=== PATIENT | female | born 2000 | race Caucasian/White ===

== ENCOUNTER 2019-06-29 14:09 | Inpatient (IN) ==
[2019-06-29] MEDS ORDERED: PENICILLIN G POTASSIUM 6 MU in DEXTROSE 5% 250 ML IV STA (15:09)
[2019-06-29] MEDS ORDERED: PENICILLIN G POTASSIUM 3 MU in DEXTROSE 5% 100 ML IV PRN (15:09)
[2019-06-29] MEDS ORDERED: OXYTOCIN 30 UNITS/500 ML BAG IV PRN ×3 (15:09→20:41)
--- NOTE | 2019-06-29 15:17 | History & Physical Report ---
Date of Service June 29, 2019 Assessment & Plan (1) Irregular uterine contractions: 18 yo at 39.6 wks with irregular ctxs, spotting since 06/28 Cervix favorable, GBS+, distance from hospital Discussed observation and recheck in 2 hours for cervical change or stay in for augmentation of labor She decided to stay for augmentation with pitocin All questions were answered History of Present Illness Primary Care Provider: NO PCP Patient is a 18 yo at 39.6 wks who has been feeling crampy since since 06/27 when her membranes were stripped in the office She has been having mild bleeding since 06/28 afternoon Cramping/ ctxs got closer and more painful today and she came to L&D No LOF +FM Her has been uncomplicated except GBS+ Denies medical problems/ Smoking/ alcohol/ Drug or medication use Allergies Allergy/AdvReac Type Severity Reaction Status Date / Time No Known Allergies Allergy Unverified 06/29/19 14:28 Home Medications Home Medications Medication Instructions Recorded Confirmed Type vit-iron fum-folic ac 1 tab PO DAILY 06/29/19 06/29/19 History [ Vitamin] Patient History Social History Preferred Language: Mohawk Communication Ability: Effective 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 Beliefs That Will Affect Care: None marital status: Current Living Situation: Spouse Other Information That Helps Us Care for You: No Feels Safe at Home: Yes Safety Concerns: Feels Safe At This Time Smoking Status: Never smoker Do You Dip or Chew Tobacco: No ; Second Hand Exposure: No ; Tobacco Cessation Education Requested by Patient: No Hx Alcohol Use: No Hx Substance Use: No 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
[2019-06-29 15:34] LABS: Hematocrit (blood only) 35.7 % (37-47); Hemoglobin 11.8 g/dL (12.0-16.0); Mean Corpuscular Hemoglobin 28.8 pg (25-34); Mean Corpuscular Volume 87.1 fL (80-100); Mean Platelet Volume 12.8 fL (7.4-10.4); Platelet Count 143 K/uL (130-400); RDW Coefficient of Variation 13.9 % (11.5-14.5); RDW Standard Deviation 44.1 fL (36.4-46.3); White Blood Count 7.99 K/uL (4.8-10.8)
[2019-06-29] MEDS: LACTATED RINGER'S 1,000 ML IV PRN ×2 (15:36→17:28)
[2019-06-29 15:48] LABS: Mean Corpuscular Hgb Conc 33.1 g/dL (32-36)
--- NOTE | 2019-06-29 16:45 | Obstetrical Progress Note ---
Date of Service June 29, 2019 Assessment & Plan Admission and Anticipated Discharge Date Admission Date: June 29, 2019 Subjective Patient is getting painful and desires epidural for pain VE; good 4 cm/ 80%/ -2 Pitocin is at 4 miu/min Unable to trace ctxs well she is moving and rolling in the bed PCN is running Plan to get epidural for pain and continue to monitor Results & Data ([facility]) Vital Signs (Past 12 Hours) Vital Signs Temp Pulse Resp BP 06/29/19 16:33 94 H 126/73 06/29/19 15:30 68 142/65 H 06/29/19 14:14 36.9 C 93 H 20 120/69
[2019-06-29] MEDS ORDERED: ePHEDrine sulfate 50 MG/ML AMP ONE (16:46)
[2019-06-29] MEDS ORDERED: fentaNYL citrate 100 MCG/2 ML VIAL ONE (16:46)
[2019-06-29] MEDS ORDERED: fentaNYL 2MCG/ML ROPIV 1.25MG/ML 100 ML BAG EPI ONE (16:47)
[2019-06-29] MEDS ORDERED: BUPIVACAINE 0.25% 30 ML VIAL ONE (16:47)
--- NOTE | 2019-06-29 17:24 | Anesthesiology Consultation ---
Date of Service June 29, 2019 Assessment & Plan Chart Review Chart Review: Acceptable Risk for Labor Epidural Consults Requested none History Height/Weight Height: 5 ft 5.5 in Weight: 89.811 kg Allergies Allergy/AdvReac Type Severity Reaction Status Date / Time No Known Allergies Allergy Unverified 06/29/19 14:28 Medications Home Medications Medication Instructions Recorded Confirmed Last Taken vit-iron fum-folic ac 1 tab PO DAILY 06/29/19 06/29/19 06/29/19 07:00 [ Vitamin] Active Medications Generic Name Dose Route Start Last Admin Trade Name Freq PRN Reason Stop Dose Admin Lactated Ringer's 1,000 mls @ 150 mls/hr 06/29/19 15:09 06/29/19 16:38 Lr IV 07/01/19 15:08 999 mls/hr .[id number] PRN Infusion L&D Protocol Protocol Oxytocin 30 units in 500 mls @ 4 mls/hr 06/29/19 15:11 06/29/19 16:11 Pitocin IV 07/01/19 15:10 0.24 units/hr .Q24H PRN 4 mls/hr Labor Induction/Augmentation Titration Protocol 0.24 UNITS/HR Social History Smoking Status: Never smoker Do You Dip or Chew Tobacco: No Hx Alcohol Use: No Hx Substance Use: No Physical Exam Vital Signs Last Vital Signs Temp 36.9 C 06/29/19 14:14 Pulse 88 06/29/19 17:22 Resp 20 06/29/19 17:14 BP 108/54 L 06/29/19 17:22 Pulse Ox 100 06/29/19 17:21 Testing Laboratory Results 06/29/19 15:21
[2019-06-29] MEDS ORDERED: NALOXONE HCL 1 MG in SODIUM CHLORIDE 0.9% 1000ML 1,000 ML IV PRN (17:25)
[2019-06-29] MEDS ORDERED: DiphenhydrAMINE HCL 50 MG/ML VIAL IV PRN (17:25)
[2019-06-29] MEDS ORDERED: fentaNYL 2MCG/ML ROPIV 1.25MG/ML 100 ML BAG EPI PRN (17:25)
[2019-06-29] MEDS ORDERED: NALOXONE HCL 0.4 MG/1 ML VIAL/CARP IV PRN (17:25)
[2019-06-29] MEDS ORDERED: NALBUPHINE HCL INJ 10 MG/ML AMP IV PRN (17:25)
[2019-06-29] MEDS ORDERED: ePHEDrine sulfate 50 MG/ML AMP IV PRN (17:25)
--- NOTE | 2019-06-29 19:55 | Obstetrical Progress Note ---
Date of Service June 29, 2019 Assessment & Plan Admission and Anticipated Discharge Date Admission Date: June 29, 2019 Subjective Patient received epidural for pain Now feels pressure FHR categ I VE; 9/ 90%/ +1, bulging bag 2nd dose of PCN is being given, increased the rate Continue to monitor Results & Data ([facility]) Vital Signs (Past 12 Hours) Vital Signs Temp Pulse Resp BP Pulse Ox 06/29/19 19:51 91 H 99 06/29/19 19:48 101 H 86 L 06/29/19 19:46 100 H 95 06/29/19 19:45 95 H 119/71 06/29/19 19:41 100 H 100 06/29/19 19:36 104 H 99 06/29/19 19:31 92 H 100 06/29/19 19:30 97 H 122/69 06/29/19 19:28 97 H 84 L 06/29/19 19:26 104 H 99 06/29/19 19:21 98 H 120/64 100 06/29/19 19:16 99 H 90 06/29/19 19:15 111 H 84 L 06/29/19 19:11 108 H 120/67 100 06/29/19 19:10 36.6 C 18 120/67 06/29/19 19:06 92 H 100 06/29/19 19:01 105 H 100 06/29/19 19:00 97 H 20 115/59 L 06/29/19 18:56 93 H 99 06/29/19 18:51 98 H 100 06/29/19 18:46 105 H 100 06/29/19 18:45 86 125/58 L 06/29/19 18:41 93 H 100 06/29/19 18:36 113 H 100 06/29/19 18:31 116 H 98 06/29/19 18:30 18 06/29/19 18:26 104 H 99 06/29/19 18:21 90 98 06/29/19 18:16 96 H 112/73 100 06/29/19 18:11 91 H 100 06/29/19 18:06 109 H 100 06/29/19 18:01 93 H 100 06/29/19 18:00 105 H 20 115/66 06/29/19 17:56 98 H 99 06/29/19 17:51 105 H 93 06/29/19 17:46 89 100 02/24/20 17:45 91 H 95/51 L 06/29/19 17:41 91 H 100 06/29/19 17:40 98 H 92/51 L 06/29/19 17:36 92 H 100 06/29/19 17:35 83 95/52 L 06/29/19 17:31 87 100 06/29/19 17:30 90 20 117/57 L 06/29/19 17:28 94 H 116/57 L 06/29/19 17:26 90 101/49 L 99 06/29/19 17:24 82 102/50 L 06/29/19 17:23 37.1 C 20 06/29/19 17:22 88 108/54 L 06/29/19 17:21 91 H 100 06/29/19 17:20 94 H 90/52 L 06/29/19 17:18 103 H 96/52 L 06/29/19 17:16 110 H 93/43 L 96 06/29/19 17:14 97 H 20 111/55 L 06/29/19 17:11 96 H 80 L 06/29/19 17:10 96 H 135/60 06/29/19 17:08 95 H 169/72 H 06/29/19 17:06 107 H 95 06/29/19 17:02 90 87 L 06/29/19 17:01 104 H 100 06/29/19 16:56 90 99 06/29/19 16:51 85 100 06/29/19 16:50 86 93 06/29/19 16:46 70 97 06/29/19 16:33 94 H 126/73 06/29/19 15:30 68 142/65 H 06/29/19 14:14 36.9 C 93 H 20 120/69
[2019-06-29] MEDS ORDERED: OXYCODONE/ACETAMINOPHEN 5mg/325mg TAB PO PRN (20:41)
[2019-06-29] MEDS ORDERED: HYDROCORTISONE ACETATE 25 MG SUPP PR PRN (20:41)
[2019-06-29] MEDS ORDERED: MEASLES, MUMPS & RUBELLA VIRUS VIAL SQ ONE (20:41)
[2019-06-29] MEDS ORDERED: DIPHTHERIA/TETANUS/PERTUSSIS 0.5 ML SYR/VIAL IM ONE (20:41)
[2019-06-29] MEDS ORDERED: SUPERCREAM 0.870% 15 GM JAR EXT PRN (20:41)
[2019-06-29] MEDS ORDERED: BENZOCAINE 20% AER SPR 82.5 GM CAN EXT PRN (20:41)
[2019-06-29] MEDS ORDERED: bisacodyL 10 MG SUPP PR PRN (20:41)
--- NOTE | 2019-06-29 21:24 | Anesthesia Procedure Note ---
Date of Service June 29, 2019 Anesthesia Post Epidural Note Vital Signs Vital Signs: Temp Pulse Resp BP Pulse Ox 36.6 C 117 H 18 139/66 91 06/29/19 19:10 06/29/19 21:15 06/29/19 19:10 06/29/19 21:15 06/29/19 20:46 Pain Intensity Abdomen: Pain Intensity: 0 Notes Mental Status: alert / awake / arousable Nausea / Vomiting: adequately controlled Pain: adequately controlled Airway Patency, RR, SpO2: stable & adequate BP & HR: stable & adequate Hydration State: stable & adequate Neuraxial Anesthesia: was administered and sensory block is resolving Anesthetic Complications: no major complications apparent and Pt Satisfied with anesthetic care Epidural: Removed without complications and With tip intact
[2019-06-29] MEDS: IBUPROFEN 600 MG TAB PO PRN (22:47)
[2019-06-29] MEDS: DOCUSATE SODIUM 100 MG CAP PO SCH (23:36)
--- NOTE | 2019-06-30 00:32 | Delivery Summary ---
DATE OF OPERATION: 06/29/2019 TIME OF DELIVERY OF BABY: 20:15 p.m. DETAILS OF DELIVERY: The patient was found to be fully dilated at head at +3 station and she desired to push. She pushed through 1 contraction and delivered the head without difficulty. Shoulders were delivered with minimal traction. Baby was handed off to the mother where mouth and nose were suctioned, cord was clamped x2 and cut at 1 minute delay and cord blood was obtained. Perineum and vagina were checked for lacerations. There was a small second-degree perineal laceration at the posterior fourchette and first degree at the superior labial fusion. She was given lidocaine for local anesthesia and the perineal laceration was repaired with 2-0 Vicryl in a running locked fashion and the superior labial laceration was repaired with 3-0 Vicryl and SH needle with [id number] stitch x1. Excellent hemostasis was achieved. Placenta was found to be in the vagina, delivered spontaneously, complete and intact. Uterus was explored, found to be empty. Lower segment was cleared of all clots and debris. Fundus was firm. EBL was 300 mL. Mom and baby tolerated the procedure well. Sponge, lap, needle count was correct x2. Baby was a viable female infant, Apgars 8/9, weight is 3695 gr.. No complications happened and I was present during whole procedure. I attest to the content of the Intraoperative Record and any orders documented therein. Any exceptions are noted below. MTDD
[2019-06-30] MEDS: IBUPROFEN 600 MG TAB PO PRN ×4 (04:42→23:30)
[2019-06-30 07:55] LABS: Hematocrit (blood only) 30.4 % (37-47); Hemoglobin 9.9 g/dL (12.0-16.0); Mean Corpuscular Hemoglobin 28.6 pg (25-34); Mean Corpuscular Hgb Conc 32.6 g/dL (32-36); Mean Corpuscular Volume 87.9 fL (80-100); Mean Platelet Volume 12.5 fL (7.4-10.4); Platelet Count 124 K/uL (130-400); Platelet Estimate Normal (Normal); RDW Coefficient of Variation 14.1 % (11.5-14.5); Red Blood Count 3.46 M/uL (4.2-5.4); White Blood Count 10.99 K/uL (4.8-10.8)
--- NOTE | 2019-06-30 08:46 | Obstetrical Progress Note ---
Date of Service June 30, 2019 Assessment & Plan Admission and Anticipated Discharge Date Admission Date: June 29, 2019 Subjective doing well passing gas Physical Exam Constitutional: WD/WN, vitals as above comfortable abdomen soft no edema neg Marcelino's tent d/c in AM Results & Data ([facility]) Vital Signs (Past 12 Hours) Vital Signs Temp Pulse Resp BP Pulse Ox 06/29/19 22:39 113 H 116/75 06/29/19 22:09 121 H 122/64 06/29/19 21:46 115 H 117/69 06/29/19 21:30 115 H 119/57 L 06/29/19 21:15 117 H 139/66 06/29/19 21:00 118 H 123/86 06/29/19 20:55 36.8 C 20 06/29/19 20:46 118 H 91 06/29/19 20:45 113 H 116/55 L Laboratory Results Laboratory Results - last 48 hr 06/29/19 06/30/19 15:21 06:49 WBC 7.99 10.99 H RBC 4.10 L 3.46 L Hgb 11.8 L 9.9 L Hct 35.7 L 30.4 L MCV 87.1 87.9 MCH 28.8 28.6 MCHC 33.1 32.6 RDW Std Deviation 44.1 45.0 RDW Coeff of Digna 13.9 14.1 Plt Count 143 124 L MPV 12.8 H 12.5 H Platelet Estimate Normal
[2019-06-30] MEDS: PRENATAL VITAMIN 1 TAB PO SCH (09:02)
[2019-06-30] MEDS: FERROUS SULFATE 325 MG TAB PO SCH (09:02)
[2019-06-30] MEDS: DOCUSATE SODIUM 100 MG CAP PO SCH ×2 (09:02→20:42)
[2019-06-30] MEDS: ACETAMINOPHEN 325 MG TAB PO PRN ×2 (10:44→16:41)
[2019-06-30] MEDS ORDERED: bisacodyL 5 MG TABEC PO SCH (20:00)
[2019-07-01 07:27] LABS: Hematocrit (blood only) 31.5 % (37-47); Hemoglobin 10.2 g/dL (12.0-16.0)
[2019-07-01] MEDS: DOCUSATE SODIUM 100 MG CAP PO SCH (08:23)
[2019-07-01] MEDS: IBUPROFEN 600 MG TAB PO PRN (08:23)
[2019-07-01] MEDS: FERROUS SULFATE 325 MG TAB PO SCH (08:23)
[2019-07-01] MEDS: PRENATAL VITAMIN 1 TAB PO SCH (08:23)
== END 2019-07-01 13:59 | disposition home or self-care (01) | DRG 807 ==
LOC: OPB 14:09 → 4S1 14:13 → 4S2 23:20